=== PATIENT | female | born 1970 | race Asian ===

== ENCOUNTER 2017-04-10 23:26 | Emergency (ER) | payer SELFPAY ==
[~2017-04-10] VITALS: Ht 165.1 cm; Wt 65.0 kg
[2017-04-11 08:34] VITALS: BP 128/76
== END 2017-04-11 08:37 | disposition home or self-care (01) ==
LOC: EDBD 23:26 → ER 23:26
DX: F41.9 Anxiety disorder, unspecified (principal); J45.909 Unspecified asthma, uncomplicated; Z88.8 Allergy status to other drugs, medicaments and biological substances
CPT/HCPCS: 71010; 81025; 93005; 99284